=== PATIENT | female | born 1955 | race Caucasian/White ===

== ENCOUNTER 2021-05-18 12:07 | Inpatient (IN) | payer OTHER ==
[~2021-05-18] VITALS: Ht 177.8 cm; Wt 161.6 kg
--- NOTE | 2021-05-18 16:36 | NUR ---
THIS RN CALLED AND SPOKE WITH JORGE FIRE PATROLLER AT [facility] IN [facility] IN ATTEMPT TO CLARIFY MEDICATIONS. KATHY REPORTS THAT PT HAS REFUSED INVEGA SUSTENNA FOR MONTHS OF FEB, MAR AND APRIL-INJECTION WAS DUE ON THE AND KATHY "BELIEVES" THE LAST DOSE GIVEN WAS ON January. KATHY GAY STATES PT TAKES PO MEDICATIONS "ABOUT 9 DAYS OUT OF THE WHOLE MONTH" THROUGHOUT THE MONTHS OF JAN, FEB,MAR AND APR, PT LAST PSYCHIATRIC HOSPITILIZATION WAS june 2020.KATHY STATES THE FACILITY HAS CALLED TO [facility] TO "HELP WITH" THE IM MEDS BUT PT CONTINUES TO REFUSE.
--- NOTE | 2021-05-18 18:09 | NUR ---
CALLED AND SPOKE WITH PT GUARDIAN ALEXANDER CHUNG-CONSENTS OBTAINED-PROVIDED WITH CONFIDENTIALITY NUMBER ,ROOM NUMBER AND OVERVIEW OF UNIT. REVIEWED FALLS PRECAUTIONS AND UNIT SCHEDULE AND RULES VIA PHONE. GUARDIAN STATES UNDERSTANDING AND DENIES QUESTIONS/CONCERNS
[2021-05-18] MEDS ORDERED: DEMADEX20 MG PO (20:47)
[2021-05-18] MEDS ORDERED: HALOPERIDOL 5 MG5 MG PO (20:47)
[2021-05-18] MEDS ORDERED: TRIAMTERENE-HC1 EAC2 PO (20:48)
[2021-05-18] MEDS ORDERED: OLANZAPINE10 M1 PO (20:48)
[2021-05-18] MEDS ORDERED: LORAZEPAM 1 MG T1 MG PO (20:49)
[2021-05-18] MEDS ORDERED: DIVALPROEX SOD500 MG PO (20:49)
[2021-05-18] MEDS ORDERED: BENZTROPINE MES1 MG PO (20:49)
[2021-05-18] MEDS ORDERED: INVEGA SUS234 MG/1.5 PO (20:51)
[2021-05-18] MEDS ORDERED: LORAZEPAM2 MG/1 ML IV (20:53)
[2021-05-18 21:00] VITALS: BP 149/70
--- NOTE | 2021-05-19 01:26 | NUR ---
05-18-24 RECEIVED REPORT FROM ED RN VINOD. PT ARRIVED ON UNIT 2100 PT LETHARGIC AND REFUSING TO ANSWER QUESTIONS, OBSERVED NO SI/HI BEHAVIORS. PT VS B/P 149/70, P 102, R 20, T 98.6, 02 SAT 94% RA RR EVEN AND NONLABORED ON RA, LUNGS CLEAR, HT RR, ABD ACTIVE/ROUND/NONTENDER. PT HAS MULTI SMALL SCABBED WOUNDS ALL OVER BODY, REDNESS IN LALO AREA AND EDEMA IN LE NONPITTING. PT HX PARANOID SCHIZOPHRENIA, DELUSIONAL DISORDERS, MAJOR DEPRESSIVE DISORDERED, CONSTIPATION, INSOMNIA, CONTRACTURE BI-LAT KNEE, OBSITY. HCP Lizbet ZAPATA NP CONTACTED. HCP Lizbet HAYNES DO CONTACTED. PT WILL CONTINUE TO BE MONITOR PER [facility] PROTOCOL.
[2021-05-19 06:47] LABS: CHOLESTEROL 147 mg/dL (<200); HDL CHOLESTEROL 51 mg/dL (>40); LDL CHOLESTEROL 85 mg/dL (<100); TC:HDL 2.9 Ratio (Not establshd); TRIGLYCERIDE 59 mg/dL (<150); VLDL 12 mg/dL (<40)
[2021-05-19] MEDS ORDERED: SINGULAIR 10 MG10 M1 PO (08:22)
[2021-05-19 09:00] VITALS: BP 115/56
[2021-05-19 09:03] LABS: ALBUMIN 2.9 g/dL (3.4-5.0); CALCIUM 8.9 mg/dL (8.5-10.1); CREATININE 0.9 mg/dL (0.6-1.0); MAGNESIUM 2.3 mg/dL (1.8-2.4); TOTAL BILIRUBIN 0.4 mg/dL (0.2-1.0); TOTAL PROTEIN 6.9 g/dL (6.4-8.2)
[2021-05-19 10:03] LABS: FOLIC ACID 96.3 ng/mL (8.6-58.9)
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
--- NOTE | 2021-05-19 10:48 | NUR ---
Meeting with patient, Dr. Arevalo and social media intern.
--- NOTE | 2021-05-19 15:10 | NUR ---
PATIENT FOUND ON FLOOR AROUND 1400 IN HER ROOM. BED ALARM HAD BEEN ON AND WENT OFF. NON WITNESSED - UNCERTAIN WHETHER SHE PLACED SELF ON FLOOR OR NOT. HISTORY OF DOING SO AND HAD TRIED EARLIER IN AM FROM SHIVA CHAIR. STAFF FOUND PATIENT LYING ON SIDE ON FLOOR - INCONTINENT OF URINE. PATIENT NEEDED ALOT OF ENCOURAGEMENT - TOOK FOUR PROMOTIONS DIRECTOR AND HALF OUR STAFF TO MANUVER PATIENT OFF FLOOR AND INTO SHIVA CHAIR. SHE IS WEIGHT BEARING BUT FINDS IT DIFFICULT TO GET UP INDEPENDENTLY AT TIMES. AT 1340 SHE HAD BEEN GIVEN ONETIME DOSE OF HALDOL 5MG PO WHICH SHE TOOK WITHOUT INCIDENCE. UNCERTAIN ON PATIENT'S BEHAVIOR SITUATED PATIENT IN SIHVA CHAIR IN DINING JUÁREZ TO MONITOR - PATIENT HAD EKG AND CHEST X-RAY IN SHIVA CHAIR. CONTINUOUSLY INCONTINENT AND REQUIRES CONSTANT ATTENTION.
--- NOTE | 2021-05-19 16:13 | EKG ---
[address] [place] [address] ELECTROCARDIOGRAM REPORT Name: VICTOR HUGO FRANCE Room #: [facility] ADM IN M.R.#: [id number] Admission: 05/18/21 Attend Phys: Leander Arevalo DO Discharge: Date of : 55 Report #: [id number] [facility] Test Date: 2021-05-19 Test Time: 15:00:11 Pat Name: VICTOR HUGO FRANCE Department: Room: [facility] Gender: F Insurance Territory Manager: ELIZABETH : 1955 Requested By: Leander Arevalo Order Number: [id number] MD: Mike Ivy Measurements Intervals [place] Rate: 84 P: 20 TX: 165 QRS: 134 QRSD: 92 T: 28 QT: 379 QTc: 449 Interpretive Statements Sinus rhythm Low voltage, precordial leads Borderline T abnormalities, anterior leads No previous ECG available for comparison Electronically Signed On 05-19-2021 16:12:55 PROGRAM DIRECTOR GROUP WORK by Mike Ivy [email or web address] <ELECTRONICALLY SIGNED> By: Mike Ivy MD, [facility] 05/19/21 1612 1500 Zohra Ivy MD, FACC /EPI
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
[2021-05-20 07:12] LABS: GLYCOHEMOGLOBIN (HGB A1C) 6.6 % (4.8-5.6)
--- NOTE | 2021-05-20 12:58 | NUR ---
PATIENT HAS BEEN UP IN [facility][NOTE 3], AND OUT ON THE UNIT. SHE IS ALERT, AND ORIENTED X 3-4 ABLE TO VOICE NEED. PATIENT PRESENTS WITH BIZARRE BEHAVIOR, RESPONDS TO INTERNAL STIMULI, TALKS TO SELF, AND UNSEEN OTHERS. PATIENT HAD PUT MORNING MEDICATION IN HER MOUTH, SPIT IT IN THE CUP OF WATER , WHEN REDIRECTED TO TAKE THE MEDICATIONS, SHE STATES "I DON'T TAKE MEDICINE NOT PRESCRIBED BY MY DOCTOR". PATIENT REDIRECTED THAT MEDS WERE PRESCRIBED BY HER PSYCHIATRIST, I WAS STILL ENCOURAGING HER TO TAKE MEDICATION, PATIENT THREW THE MEDICATION WITH WATER ON THIS NET DEVELOPER PROGRAMMER. BACK-UP IM HALDOL GIVEN TO RIGHT DELTOID WITHOUT HOLD, WELL TOLERATED. PATIENT IS EATING MEALS, AND DRINKING FLUID WELL, EATS 100%, ABLE TO FEED SELF. PATIENT ATTEMPTED X 2 TO STRIP SELF NAKED, TOOK OFF YELLOW SOCKS. MOOD IS IMPULSIVE/IRRITABLE, AFFECT IS VARIABLE. NO SIGN OF ACUTE DISTRESS NOTED AT THIS TIME, WILL CONTINUE TO REDIRECT, AND MONITOR FOR SAFETY.
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
[2021-05-20 18:46] VITALS: BP 145/58
[2021-05-20 20:10] VITALS: BP 145/58
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
[2021-05-21 07:30] VITALS: BP 124/50
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
[2021-05-21 19:49] VITALS: BP 151/94
--- NOTE | 2021-05-21 23:41 | NUR ---
At onset of manufacturing supervisor 2nd shift pt was sitting in nida chair in day room. This shift pt was alert and oriented to person and place. Pt was overall agitated, hostile and uncooperative. Pt refused to take her PO medication stating that we were torturing her. Pt stated that anyone working in a [facility] hospital was working there for the money and to torture people. Pt stated that she wanted to go home. When RN explained that the pt could not discharge pt stated that the doctor wants her to give everyone $1,000 and a baby. RN administered IM 10mg Haldol for refusing PO. Pt called RN a "bitch" several times, but did not physically resist the injection. Pt was observed nodding her head several times when no one was talking to her. Pt was very sarcastic when staff assisted pt to commode. Pt had a hacking cough throughout the night. Pt is a high fall risk. Will continue monitor.
[2021-05-22] VITALS (8 sets, daily range): BP systolic 140–170; BP diastolic 50–100
--- NOTE | 2021-05-22 09:45 | NUR ---
Delusional this AM and paranoid. Insulting toward staff, calling names. Threw PO meds after verbally refusing. IM haldol given. Reaching for unseen object. When asked she stated she was remembering something. Denies SI/HI. Refused to have her buttocks assessed this AM. States name but refuses to answer other orientation questions. Breath sounds clear. Reg HR auscultated. Color pink with brisk capillary refill and palpable peripheral pulses. Increased edema in lower extremities, pitting. Active bowel sounds over soft, rounded abdomen. Brief dry. Currently sleeping at table.
[2021-05-22 10:45] LABS: BE(vivo) 1.1 mmol/L (-2 to +3); HCO3 26.2 mmol/L (22.0-26.0); PCO2 43.7 mmHg (35.0-45.0); PO2 70.8 mmHg (80.0-100.0); pH 7.396 (7.360-7.450); sO2 94.2 % (92.0-98.0)
[2021-05-22 12:37] LABS: ABSOLUTE NEUTROPHILS 7.5 thou/uL (1.4-8.2); BASOPHILS 0.6 % (0.0-2.0); EOSINOPHILS 4.4 % (0.0-3.0); HEMATOCRIT 42.7 % (37.0-47.0); HEMOGLOBIN 13.5 gm/dL (12.0-15.0); LYMPHOCYTES 14.2 % (24.0-44.0); MCH 26.1 pg (26.0-34.0); MCHC 31.6 g/dL (28.0-37.0); MCV 82.8 fL (80.0-100.0); MONOCYTES 7.3 % (1.0-8.0); PLATELET COUNT 305 thou/uL (150-400); POLYS 73.5 % (36.0-66.0); RBC 5.16 mil/uL (4.20-5.00); RDW 17.8 % (10.5-14.5); WBC 10.2 thou/uL (4.0-11.0)
[2021-05-22 12:48] LABS: CALCIUM 9.1 mg/dL (8.5-10.1); POTASSIUM 4.1 mmol/L (3.5-5.1)
--- NOTE | 2021-05-22 13:40 | EKG ---
[address] [place] [address] ELECTROCARDIOGRAM REPORT Name: VICTOR HUGO FRANCE Room #: 52-A ADM IN M.R.#: [id number] Admission: 05/18/21 Attend Phys: Leander Arevalo DO Discharge: Date of : 55 Report #: [id number] [facility] Test Date: 2021-05-22 Test Time: 11:19:35 Pat Name: VICTOR HUGO FRANCE Department: Room: [facility] Gender: F Production Mechanic: TWIN : 1955 Requested By: Leander Arevalo Order Number: [id number] MD: Mike Ivy Measurements Intervals [place] Rate: 74 P: 45 FL: 168 QRS: 123 QRSD: 96 T: 35 QT: 390 QTc: 433 Interpretive Statements Sinus rhythm Abnormal R-wave progression, late transition Inferior infarct, old Compared to ECG 05/19/2021 15:00:11 Left posterior fascicular block now present Myocardial infarct finding now present T-wave abnormality no longer present Electronically Signed On 05-22-2021 13:40:02 WAITER/WAITRESS INFORMAL by Mike Ivy [email or web address] <ELECTRONICALLY SIGNED> By: Mike Ivy MD, FAC 05/22/21 1340 1119 1119 Mike Ivy MD, [facility] /EPI
--- NOTE | 2021-05-22 15:52 | NUR ---
Family meeting with ELLY, Dr. Arevalo and Gricelda. Patient has been aggressive with staff. Dr. Arevalo informed Gricelda that he currently has band-aids on his hand from the patient becoming aggressive. Earlier in the day, the patient had been on the floor and required security to come assist. Gricelda reported that when the patient gets on the floor, the best way to handle is to allow her to remain on the floor until she settles. Dr. Arevalo explained that in the hospital setting, we are unable to handle the situation like that as it is unsafe for the patient as well as to others around the patient. Dr. Arevalo is going to increase medication. Medication for sleep will also be added PRN for the patient.
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
[2021-05-23 09:49] VITALS: BP 154/60
--- NOTE | 2021-05-23 11:29 | NUR ---
O2 SAT RECHECKED AT 0840 AND IS 91 PERCENT ON RA-WAS IRRITABLE AND RESISITIVE WITH ALLOWING SAT AND AM VS -PULLING HAND AWAY AND SWEARING AT NURSING STAFF. 02 PLACED A T 2 LITERS PER NC BUT PT REFUSES TO KEEP ON-REMOVING CANNULA FRO NOSE SEVERAL TIMES WITHIN 5 MINUTES. DID TAKE AM MEDICATIONS CRUSHED AND IN OATMEAL SERVED AT BREAKFAST
--- NOTE | 2021-05-23 12:16 | NUR ---
1145 DEEP SNORING RESPIRATIONS WITH RESP RATE OF 20-22-02 SAT TAKEN AND IS 89 PERCENT ON RA-O2 2 LITERS PLACED VIA NC AND ATTEMPTED TO RECHECK 5 MINUTES LATER BUT PT HAD REMOVED O2 FROM NOSE-DELUSIONAL STATING TO THIS NURSE THAT 02 IS POISON AND SHE DOESN'T LIKE IT-SPEECH IS SLURRED-ORIENTED TO NAME ONLY-WHEN ASKED WHERE SHE WAS STATES "HELL"
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
[2021-05-23 13:01] LABS: BE(vivo) 0.6 mmol/L (-2 to +3); PCO2 44.6 mmHg (35.0-45.0); PO2 71.7 mmHg (80.0-100.0); pH 7.383 (7.360-7.450); sO2 94.1 % (92.0-98.0)
--- NOTE | 2021-05-23 13:31 | NUR ---
DID EAT 100 PERCENT OF LUNCH AND ALLOWED BLOOD GASES TO BE DRAWN. CONTINUES TO REMOVE 02 CANNULA FROM NOSE WHEN PLACED AND STRIKING OUT AT STAFF WHEN ATTE MPTS ARE MADE TO REASON WITH HER REGARDING WEARING O2-STATES STAFF ARE TRYING TO SUFFICATE HER -ATTEMPTED MASK BUT PT REMOVES THAT WELL STATING IT IS "WORSE"VS OBTAINED BP 139/79 P-82 R-24 AND SHALLOW-O2 SAT 92 PERCENT ON RA.
--- NOTE | 2021-05-23 17:20 | NUR ---
LUNG SOUNDS COURSE-DIMINSHED IN BASES-OCCASSIONAL MOIST NON-PRODUCTIVE COUGH-02 CANNULA REMOVED AND ATTEMPTING MASK HOWEVER CONTINUES TO REMOVE OR ATTEMPT TO REMOVE SOON NURSING STAFF PLACES .RESTLESS IN BED-HOB ELEVATED. CLEAR NASAL DISCHARGE AND FREQUENT SNEEZING-O2 SAT 90 CURRENTLY
[2021-05-23 20:26] VITALS: BP 151/57
--- NOTE | 2021-05-23 20:55 | NUR ---
At onset of area cleaner pt was lying in bed awake with eyes closed. Pt removed her own IV from her right upper arm herself and threw IV cannula on ground. Pt has a simple oxygen mask with 6L O2 flowing. Pt does not keep mask on. Pt removes mask when RN places mask on face. Vital signs were obtained at beginning of shift: BP 151/57, pulse 93, respirations were 23, temperature 98.6 and O2 with oxygen mask on was 90%. Without oxygen mask pt's O2 was between 71% and 80%. Breathing is labored and even when pt is not exerting herself. Breathing becomes more labored and uneven when pt exerts self. Pt is alert and oriented to self and place. This RN cared for pt yesterday area cleaner. Pt's orientation is consistent with last night. Pt is paranoid and makes delusional statements: the oxygen mask "is poison", "you are trying to kill me." Pt is sarcastic and hostile towards staff. Pt voiced that she wanted a "meal" and notified staff that she had voided in bed. Pt was able to roll herself and follow directions when staff was cleaning patient in bed. Pt refused PO medications. Pt recieved IM 7.5mg Haldol in left deltoid for refusing PO haldol. Pt has a productive cough; pt expels light pink sputum when coughing. Pt's cough is strong and pt can clear mouth of sputum. Pt blew her own nose when provided with tissue.
[2021-05-24 08:07] VITALS: BP 109/54
--- NOTE | 2021-05-24 11:51 | NUR ---
Updates faxed to [facility]
--- NOTE | 2021-05-24 15:52 | NUR ---
Assumed pt care this morning from overnight shift. Pt presented hostile and irritable this morning, cursing and yelling at staff. Pt was oriented to self and situation, but was not oriented to time and place specfically. Pt thought that she was in hell, and stated that staff were "a bunch of sadists who want to hurt me" particularly when cares were performed. Pt's medications were given crushed in her food due to this, as pt was paranoid of medication when offered, and thought it was poison. Pt education was attempted, but pt was unwilling to listen to education about benefits of taking her medication and would not listen to benefits of taking her water pill for fluid build up. Pt did, however, eat all of her breakfast with medications crushed. Pt denied depression and anxiety. Pt denied hallucinations, although still voices that she is in hell and that staff are "out to get" her. Pt denied pain. Lung sounds crackling and rhoncus with wheezing when pt exerts self. Pt has been repositioned several times to help with exertion and to take strain off of self. Pt has continuously refused to wear oxygen mask, and has only allowed two sets of vitals thus far at the time of this note. O2 level in morning was 92 with finger pulse ox. Retake at lunch time with ear pulse ox to help with oxygentation saturation consistency reading- 96 O2 noted. Pt continues to produce productive sputum with yellow and green tinge. Pt has not had a bowel movement on this shift, but has soft and rounded abdomen. Slight rectal bleeding noted when pt was trying to go to the bathroom. Pt has been toileted several times during this shift. Bed bath given with wipes, and zinc paste applied where needed, as pt has several lesions, and dark spots on body, particularly in mesfin area. Pt dressed in new gowns and is rested in bed currently with the head of the bed raised to help with oxygenation. Pt once again refused oxygen mask when asked. No further concerns.
--- NOTE | 2021-05-24 18:07 | NUR ---
RT PROGRESS NOTE- PATIENT IS MOSTLY IN THE [facility]. SHE RECENTLY WAS DIAGNOSED WITH PNEUMONIA SO SHE HAS NOT BEEN ABLE TO PARTICIPATE IN GROUPS DUE TO BEING HOOKED UP TO A IV AND RECEIVING BREATHING TREATMENTS.
[2021-05-24 19:50] VITALS: BP 109/54
--- NOTE | 2021-05-25 00:53 | NUR ---
PATIENT CARE WAS RESMED AT 1900.SHE WAS IN BED AND SLEEPY. SHE RESPONDED TO SOME QUESTIONS AND VERBALIZES HER NEEDS. LUNGS WERE WET AND DIMINISHED AT THE BASES. SHE DENIES PAINS/SI/AVH/HI.BS ACTIVE X 4UADS. SHE IS INDONTIENT OF BLADDER. REFUSES CARE AND TO BED CHANGED. SHE GOT UP FROM BED AND HEADED TOWARDS THE WALL. CONFUSED AND STAFF GOT HER TO SIT ON THE RECLINER CHAIR WITH WAX ASSUT X2 AND SHE WAS QUINCY T TO THE DAY AREA. [id number] CHECK IS ONGOING.SHE IS HYDRATED AND SNCKS WERE ALSO PROIDED. SHE IS SITTING AT THE TABLE AND ALARMES ARE ACTIVATED. CONTINUE CARE AND MONITOR. SHE TOOK HER MEDS WITH ICE CREAME.
--- NOTE | 2021-05-25 06:13 | NUR ---
PATIENT CONTINUES TO REFUSED CARE DESPITE ALL EFFORTS AND ATTEMPT. SHE SIGNAL THE NURSE WITH HER THUMB TO LEAVE HER ROOM. SHE ALSO STATES A GOOD UNDERSTANDING OF THE THE OUTCOME OF NOT PERFORMING LALO-CARE. SHE IS AT THE DAY AREA SLEEPING IN THE TABLE.
[2021-05-25 09:44] VITALS: BP 128/66
[2021-05-25 10:04] VITALS: BP 128/66
--- NOTE | 2021-05-25 10:43 | NUR ---
PATIENT WAS TAKEN TO THE RESTROOM UPON REQUEST @1015 WITH SENIOR BUSINESS PROCESS ANALYST, RN & INSTRUMENTATION AND CONTROL TECHNICIAN; PATIENT STATED SHE NEEDED TO URINATE BUT REFUSED TO GET UP WITH WALKER-GAITBELT-*3 ASSIST; PATIENT STATES "I DON'T KNOW HOW" STAFF ATTEMPTED TO ASSIST PATIENT WITH TRANSFER AND AT THIS TIME PATIENT TRIED TO LEARN FORWARD AND FALL TO FLOOR-PURPOSFULLY; PATIENT THEN DENIED WANTING TO GET UP AND WAS TAKEN BACK TO DINNING ROOM; PATIENT THEN 30MINUTES LATER URINATED ALL OVER FLOOR AND LAUGHED; MAX ASSISTS NEEDED FOR PATIENTS CLEAN UP;
[2021-05-25 19:50] VITALS: BP 112/30
[2021-05-25 20:20] VITALS: BP 112/30
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
--- NOTE | 2021-05-26 07:18 | NUR ---
PATIENT WAS REFUSING PCR SWAB AND ODER FOR MANUAL HOLD WAS OBTAINED. SHE WAS HELD FOR I MINUTES WITH 2 BALL MILL OPERATOR AND A NURSE. PATIENT WAS KICKING BITTING AND PUNCHING DESPITE THE EDUCATION PROVIDED AND SHE STATES SOME UNDERSTANDING BY REQUESTING THE NURSE SWAB THEMSELVES AND NOT HER.
[2021-05-26 09:19] VITALS: BP 124/58
--- NOTE | 2021-05-26 09:59 | NUR ---
Alert and orientated to person and place. Denies SI/HI. Calm and cooperative this AM. Answering questions. Delusional talking about a girl and former relationships. Took meds crushed in container of yogurt, tried to pick out small amts. Breath sounds clear. O2 sat 96%. No s/o nasal flaring or retractions although she does become short of breath when standing. Reg HR auscultated. Color pink with brisk capillary refill and palpable peripheral pulses. Pitting edema per lower extremities. Incontinent of yellow urine. Active bowel sounds over large, soft, rounded abdomen. Large BM last night per report. Lotion applied to lower legs d/t dry skin. Able to stand and take few steps with walker. Currently sleeping in day room. Did not participate in group.
--- NOTE | 2021-05-26 10:41 | NUR ---
Followup: pt remains on SBH, continued behaviors. Will eat 100% of most meals, and noted does not like to fed by utensils. Diet has new orders to send finger foods. Wt trends are showing 256-362 lb with class III extreme obesity indicated. Remains low nutrition risk.
--- NOTE | 2021-05-26 16:59 | NUR ---
SW checked in with patient several times today. Patient reported to "feeling good" during the check-ins.
[2021-05-26 18:35] VITALS: BP 136/54
[2021-05-26 19:50] VITALS: BP 136/54
--- NOTE | 2021-05-26 23:00 | NUR ---
PATIENT CARE WAS RESUMED AT 1900. SHE WAS IN HER ROOM SLEEPING. SHE IS A MAX ASSIST WITH CARE. ABLE TO VERBALIZE SOME CONCERN.LUNGS ARE CLEAR BS ACTIVE X4 QUADS. SHE DENIES PAINS/SI/AVH/HI. SHE IS AGGRESSIVE AND SHE THREW YOUGORT AT A STAFFF. SHE IS SITTING AT THE DININIG AREA. YELLOW SOCKS ON , BED IS LOW, LOCKED AND ALARMED. Q12 MINUTES CHECKS ARE ONGOING. CONTINUE CARE
--- NOTE | 2021-05-27 06:12 | NUR ---
PATIENT WAS FOUND ON THE FLOOR IN THE HALLWAY AT THE ENTRANCE DOOR. SHE WHEELED HERSELF TO THE DOOR AND GOT OUT OF HER CHAIR AND PLACE HERSELF AT 0344 PER CAMERA CAPTION. THE NURSE WERE UNABLE TO GE HER OFF HTE FLOOR AND THE SECURITY OFFICERS CAME AND ENGAGED IN THE TRANSFER. PATIENT WAS VERY NON COMPLIANT AND RESISTANCE TO TRANSFER AND ASSESSMENT. MULTIPLE STRATEGUES WERE DEVICED AND PATIENT WAS TRANSFER TO CHAIR WITH MAX ASSIST X4. SHE WAS TAKEN TO HER ROOM AND CLEAN BRIEF WAS APPLIED AND SHE WAS TRANSFERE TO BED. VITAL SIGN STABLE AT 154/55, 74, 94%,97.6, 20. SHE WOULD NOT TALK TO THE INSPECTOR MACHINE CUT GLASS ALLL THROUGH THIS TIME.
[2021-05-27 09:27] VITALS: BP 150/69
--- NOTE | 2021-05-27 19:14 | NUR ---
PT ALERT AND ORIENTED TIMES THREE. VSS. PT WILL NOT ANSWER ASSESSMENT QUESTIONS. PT REFUSED MEDICATIONS IM BACK UP GIVEN, PT TOLERATES MEALS. LITTLE INTERACTIONS WITH STAFF AND PEERS.
[2021-05-27 19:34] VITALS: BP 145/58
--- NOTE | 2021-05-28 00:55 | NUR ---
PATIENT RESTING IN THE COMMON AREA. DURING THIS SHIFT SHE HAS REMAOINED CALM. SHE DENIES PAIN OR NEEDS. SHE DOES RESPOND TO QUESTIONS BUT MINIMALLY. VSS. SHE DOES HAVE A PRODUCTIVE COUGH. NO RESPIRATORY DISTRESS NOTED. ALL SAFETY PRECAUTIONS ARE IN PLACE. WILL CONTINUE TO MONITOR FOR CHANGES IN PATIENT STATUS.
--- NOTE | 2021-05-28 09:44 | NUR ---
05/27/2021 - Email to Cat, Hospital liaison for [facility], regarding scheduling a meeting to talk to the facility for discharge.
[2021-05-28 09:47] VITALS: BP 125/54
[2021-05-28 11:11] VITALS: BP 125/54
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
[2021-05-28 19:21] VITALS: BP 139/49
--- NOTE | 2021-05-28 20:23 | NUR ---
Primary nursing care done by Belinda Watters LPN. Assessment done by this medical underwriter mid afternoon. Alert and orientated x2. Calm, cooperative and compliant. Denies SI/HI. Breath sounds clear, no s/o respiratory distress. Occassional cough productive of clear phlegm. Reg HR auscultated. Color pink with brisk capillary refill and palpable peripheral pulses. Active bowel sounds over large, soft abdomen. Large brown stool per commode. Extremely large amt yellow urine per brief, blankets and shirt, pad. Assisted pt with cleaning self. She then ambulated with walker with slightly unsteady gait to couch in day room from her room. No s/o distress.
--- NOTE | 2021-05-29 05:44 | NUR ---
Assumed care of pt at 1900. Pt calm et cooperative most of shift. Took medications crushed in [place] drink without difficulty. Ambulates with assistance of walker with somewhat steady gait. VSWNL. Health assessment with no abnormalities noted at present time. Unable to assess SI/HI due to psychosis but does not demonstrate any symptoms of acute emotional distress at present time. Currently sitting in nida-chair in dayroom with eyes open. Will continue to monitor per unit protocol.
[2021-05-29] MEDS ORDERED: HALOPERIDOL 5 MG5 MG PO (09:11)
[2021-05-29] MEDS ORDERED: PEPCID20 MG PO (09:14)
[2021-05-29 10:42] VITALS: BP 138/67
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
--- NOTE | 2021-05-29 13:36 | NUR ---
Discharge summary faxed to [facility]
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
== END 2021-05-29 13:07 | DRG 885 ==
LOC: SBH
PROVIDERS: Hospitalist; Internal Medicine; ADMIT Psychiatry & Neurology Psychiatry; ATTEND Psychiatry & Neurology Psychiatry
DX: F25.1 Schizoaffective disorder, depressive type (principal); J96.21 Acute and chronic respiratory failure with hypoxia; Z68.43 Body mass index [BMI] 50.0-59.9, adult; F32.9 Major depressive disorder, single episode, unspecified; J45.909 Unspecified asthma, uncomplicated; R73.9 Hyperglycemia, unspecified; E66.01 Morbid (severe) obesity due to excess calories; I10 Essential (primary) hypertension; Z20.822 Contact with and (suspected) exposure to COVID-19
CPT/HCPCS: 10880

== ENCOUNTER 2021-05-18 13:28 | Emergency (ER) | payer OTHER ==
[~2021-05-18] VITALS: Ht 170.2 cm; Wt 113.4 kg
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
[2021-05-18 14:41] VITALS: BP 144/64
--- NOTE | 2021-05-18 14:53 | NUR ---
Patient currently with sitter in the ED. Patient primarily takes 200mg Thorazine TID. Patient has not received a dose since 05/17/21 HS. Order obtained for Thorazine 200mg IM Stat. Medication provided with staff assist x4. Patient delusional, paranoid. Stating nurse was injecting her with leukemia. Incontinent of bladder. Required staff x4 to complete bed change and mesfin care. Patient being sexually inappropriate, touching genitals. Patient stating she is trying to "get the babies out" while placing her fingers in her vagina.
[2021-05-18] MEDS ORDERED: DEMADEX20 MG PO (20:47)
[2021-05-18] MEDS ORDERED: HALOPERIDOL 5 MG5 MG PO (20:47)
[2021-05-18] MEDS ORDERED: OLANZAPINE10 M1 PO (20:48)
[2021-05-18] MEDS ORDERED: TRIAMTERENE-HC1 EAC2 PO (20:48)
[2021-05-18] MEDS ORDERED: BENZTROPINE MES1 MG PO (20:49)
[2021-05-18] MEDS ORDERED: LORAZEPAM 1 MG T1 MG PO (20:49)
[2021-05-18] MEDS ORDERED: DIVALPROEX SOD500 MG PO (20:49)
[2021-05-18] MEDS ORDERED: INVEGA SUS234 MG/1.5 PO (20:51)
[2021-05-18] MEDS ORDERED: LORAZEPAM2 MG/1 ML IV (20:53)
[2021-05-19] MEDS ORDERED: SINGULAIR 10 MG10 M1 PO (08:22)
== END 2021-05-18 20:51 ==
LOC: ER 13:28
PROVIDERS: Student in an Organized Health Care Education/Training Program
DX: F91.1 Conduct disorder, childhood-onset type (principal); Z20.822 Contact with and (suspected) exposure to COVID-19; F32.9 Major depressive disorder, single episode, unspecified; F20.0 Paranoid schizophrenia; Z79.891 Long term (current) use of opiate analgesic; Z79.899 Other long term (current) drug therapy